=== PATIENT | female | born 2000 | race Caucasian/White ===

== ENCOUNTER 2021-03-15 11:08 | Emergency (ER) | payer BC, OTHER ==
[2021-03-15] MEDS ORDERED: Ondansetron 4 MG/2 ML SDV IVPUSH ONE (11:29)
[2021-03-15] MEDS ORDERED: Sodium Chloride 0.9% 1,000 ML IV SCH (11:30)
--- NOTE | 2021-03-15 11:42 | EDM.PDOC ---
ED HPI GENERAL MEDICAL PROBLEM - General Chief Complaint: Gastrointestinal Problem Stated Complaint: [id number] VOMITING AND DIAHERRA FOR OVER 24 HOURS Time Seen by Provider: 03/15/21 11:37 Source of Information: Reports: Patient, RN, RN Notes Reviewed History Limitations: Reports: No Limitations - History of Present Illness INITIAL COMMENTS - FREE TEXT/NARRATIVE: Natalie is a 20 y/o female who presents to the ED via personal vehicle with complaints of nausea, vomiting, and diarrhea for >24 hours. The patient reports she woke up yesterday with loose stools at approximately 0600, she started vomiting shortly thereafter. She has noticed her symptoms have maintained since this time and has grown concerned the stools and emesis have not slowed down. She has attempted small, frequent sips of clear liquids but has not been able to keep her fluids down. She has taken one dose of Dramamine at the instruction of her nursing care attendant, which offered her no alleviation of symptoms. She denies fever, shaking chills, vision changes, dyspepsia, palpitations, hematemesis, dysuria, hematuria, melena, or hematochezia. She does attest to general malaise and moderate abdominal cramping. The patient states she is currently on her menses. She denies tobacco or recreational drug use; she drinks alcohol socially and reports a last drink about five days ago on 03/09/21. She denies a history of COVID infection and has not received any COVID vaccination. - Related Data Allergies Allergy/AdvReac Type Severity Reaction Status Date / Time clindamycin Allergy Chest Verified 03/15/21 11:37 Presssure doxycycline Allergy Chest Verified 03/15/21 11:37 Presssure Home Meds: Home Meds . [No Known Home Meds] 03/15/21 [History] Past Medical History - Past Surgical History Other HEENT Surgeries/Procedures: jaw reconstruction Social & Family History - Family History Family Medical History: No Pertinent Family History - Tobacco Use Tobacco Use Status *Q: Never Tobacco User Second Hand Smoke Exposure: No - Caffeine Use Caffeine Use: Reports: Soda - Recreational Drug Use Recreational Drug Use: No ED ROS GENERAL - Review of Systems Review Of Systems: Comprehensive ROS is negative, except as noted in HPI. ED EXAM, GI/ABD - Physical Exam Exam: See Below Exam Limited By: No Limitations General Appearance: Alert, Thin, Other (Ill-appearing). No: Active Emesis Eyes: Bilateral: Normal Appearance, EOMI Throat/Mouth: Normal Inspection, Normal Lips (Dry and cracked), Normal Teeth, Normal Voice, No Airway Compromise. No: Normal Oropharynx (Dry oral mucous membranes) Head: Atraumatic, Normocephalic Neck: Normal Inspection, Supple, Non-Tender, Full Range of Motion Respiratory/Chest: No Respiratory Distress, Lungs Clear, Normal Breath Sounds, No Accessory Muscle Use, Chest Non-Tender Cardiovascular: Normal Peripheral Pulses, Regular Rate, Rhythm, No Edema, No Gallop, No JVD, No Murmur, No Rub, Tachycardia GI/Abdominal Exam: Soft, Non-Tender, No Distention, No Mass, Pelvis Stable, Abnormal Bowel Sounds (Hypoactive bowel sounds) (Female) Exam: Deferred Rectal (Female) Exam: Deferred Back Exam: Normal Inspection, Full Range of Motion Extremities: Normal Inspection, Normal Range of Motion, Non-Tender, Normal Capillary Refill, No Pedal Edema Neurological: Alert, Oriented, CN II-XII Intact, Normal Cognition, Normal Gait, Normal Reflexes, No Motor/Sensory Deficits Psychiatric: Normal Affect, Normal Mood Skin Exam: Dry, Intact, No Rash, Cool, Pallor. No: Ecchymosis, Erythema, Mottled, Petechiae Course - Vital Signs Last Recorded V/S: Last Vital Signs Temp 97.3 F 03/15/21 11:25 Pulse 140 H 03/15/21 11:25 Resp 18 03/15/21 11:25 BP 133/89 03/15/21 11:25 Pulse Ox 100 03/15/21 11:25 - Orders/Labs/Meds Orders: Active Orders 24 hr Category Date Time Status Sodium Chloride 0.9% [Normal Saline] 1,000 ml Med 03/15/21 11:30 Active IV ASDIRECTED Medication Orders Sodium Chloride (Normal Saline) 1,000 mls @ 999 mls/hr IV ASDIRECTED YEHUDA Last Admin: 03/15/21 11:29 Dose: 999 mls/hr Documented by: SCARLET Labs: Laboratory Tests 03/15/21 03/15/21 03/15/21 Range/Units 11:23 11:23 11:28 WBC 7.8 (5.0-10.0) 10^3/uL RBC 4.66 (4.2-5.4) 10^6/uL Hgb 13.7 (12.0-16.0) g/dL Hct 40.5 (37.0-47.0) % MCV 86.9 (80-100) fL MCH 29.4 (27.0-34.0) pg MCHC 33.8 (33.0-35.0) g/dL Plt Count 281 (150-450) 10^3/uL Neut % (Auto) 76.6 H (42.2-75.2) % Lymph % (Auto) 12.5 L (20.5-50.1) % [place] % (Auto) 10.5 H (2-8) % Eos % (Auto) 0.3 L (1.0-3.0) % Baso % (Auto) 0.1 (0.0-1.0) % Sodium 140 (136-145) mmol/L Potassium 3.8 (3.5-5.1) mmol/L Chloride 101 (98-107) mmol/L Carbon Dioxide 25 (21-32) mmol/L Anion Gap 17.8 H (7-13) mEq/L BUN 22 H (7-18) mg/dL Creatinine 1.00 (0.55-1.02) mg/dL Est Cr Clr Drug Dosing 87.27 mL/min Estimated GFR (MDRD) > 60 BUN/Creatinine Ratio 22.0 (No establ ref range) Glucose 108 H (70-99) mg/dL Calcium 9.2 (8.5-10.1) mg/dL Total Bilirubin 0.8 (0.2-1.0) mg/dL AST 16 (15-37) U/L ALT 29 (14-59) U/L Alkaline Phosphatase 69 (46-116) U/L Total Protein 8.3 H (6.4-8.2) g/dL Albumin 4.0 (3.4-5.0) g/dL Globulin 4.3 Albumin/Globulin Ratio 0.9 Urine Color (YELLOW) Urine Appearance (CLEAR) Urine pH (5.0-9.0) Ur Specific [place] (1.005-1.030) Urine Protein (NEGATIVE) Urine Glucose (UA) (NEGATIVE) Urine Ketones (NEGATIVE) Urine Occult Blood (NEGATIVE) Urine Nitrite (NEGATIVE) Urine Bilirubin (NEGATIVE) Urine Urobilinogen (0.2-1.0) mg/dL Ur Leukocyte Esterase (NEGATIVE) U Hyaline Cast (Auto) Urine RBC /HPF Urine WBC (0-5/HPF) /HPF Ur Epithelial Cells (NOT SEEN) /HPF Urine Bacteria (0-FEW/HPF) /HPF Urine Mucus (NOT SEEN) /LPF Urine HCG, Qual SARS-CoV-2 RNA (JACOB) Negative (NEGATIVE) 03/15/21 03/15/21 Range/Units 11:50 11:50 WBC (5.0-10.0) 10^3/uL RBC (4.2-5.4) 10^6/uL Hgb (12.0-16.0) g/dL Hct (37.0-47.0) % MCV (80-100) fL MCH (27.0-34.0) pg MCHC (33.0-35.0) g/dL Plt Count (150-450) 10^3/uL Neut % (Auto) (42.2-75.2) % Lymph % (Auto) (20.5-50.1) % [place] % (Auto) (2-8) % Eos % (Auto) (1.0-3.0) % Baso % (Auto) (0.0-1.0) % Sodium (136-145) mmol/L Potassium (3.5-5.1) mmol/L Chloride (98-107) mmol/L Carbon Dioxide (21-32) mmol/L Anion Gap (7-13) mEq/L BUN (7-18) mg/dL Creatinine (0.55-1.02) mg/dL Est Cr Clr Drug Dosing mL/min Estimated GFR (MDRD) BUN/Creatinine Ratio (No establ ref range) Glucose (70-99) mg/dL Calcium (8.5-10.1) mg/dL Total Bilirubin (0.2-1.0) mg/dL AST (15-37) U/L ALT (14-59) U/L Alkaline Phosphatase (46-116) U/L Total Protein (6.4-8.2) g/dL Albumin (3.4-5.0) g/dL Globulin Albumin/Globulin Ratio Urine Color Dark yellow (YELLOW) Urine Appearance Slightly cloudy (CLEAR) Urine pH 6.0 (5.0-9.0) Ur Specific [place] 1.025 (1.005-1.030) Urine Protein 30 H (NEGATIVE) Urine Glucose (UA) Negative (NEGATIVE) Urine Ketones 40 H (NEGATIVE) Urine Occult Blood Trace-intact H (NEGATIVE) Urine Nitrite Negative (NEGATIVE) Urine Bilirubin Small H (NEGATIVE) Urine Urobilinogen 0.2 (0.2-1.0) mg/dL Ur Leukocyte Esterase Negative (NEGATIVE) U Hyaline Cast (Auto) Rare Urine RBC 0-5 /HPF Urine WBC 0-5 (0-5/HPF) /HPF Ur Epithelial Cells Few (NOT SEEN) /HPF Urine Bacteria Few (0-FEW/HPF) /HPF Urine Mucus Many H (NOT SEEN) /LPF Urine HCG, Qual Negative SARS-CoV-2 RNA (JACOB) (NEGATIVE) Meds: Medications Generic Name Dose Route Start Last Admin Trade Name Freq PRN Reason Stop Dose Admin Sodium Chloride 1,000 mls @ 999 mls/hr 03/15/21 11:30 03/15/21 11:29 Normal Saline IV 999 mls/hr ASDIRECTED YEHUDA Administration Discontinued Medications Generic Name Dose Route Start Last Admin Trade Name Freq PRN Reason Stop Dose Admin Ondansetron HCl 4 mg 03/15/21 11:29 03/15/21 11:36 Ondansetron 4 Mg/2 Ml Sdv IVPUSH 03/15/21 11:30 4 mg ONETIME ONE Administration - Re-Assessments/Exams Free Text/Narrative Re-Assessment/Exam: 03/15/21 NS 1L bolus and Zofran 4mg IVP administered while labs pending. CBC unremarkable for acute processes; no evidence of infection or anemia. CMP fairly benign; electrolytes, kidney function, and liver function appropriate. Anion gap likely elevated d/t vomiting and mild dehydration. Hcg negative. COVID negative. Discussed findings of examination and lab work with patient. No indication for imaging given history and exam as etiology is likely gastroenteritis that is currently affecting the community. Discussed supportive cares, as well as red flag signs and symptoms which would warrant reevaluation. Patient verbalized understanding and agreement with the plan of care. Departure - Departure Time of Disposition: 12:22 Disposition: Home, Self-Care 01 Condition: Good Clinical Impression: Gastroenteritis - Discharge Information *PRESCRIPTION DRUG MONITORING PROGRAM REVIEWED*: Not Applicable *COPY OF PRESCRIPTION DRUG MONITORING REPORT IN PATIENT KRYS: Not Applicable Instructions: Dehydration, Adult, [id number], Viral Gastroenteritis, Adult, [id number] Forms: ED Department Discharge Additional Instructions: Rx: Zofran 1.) Drink small sips of water frequently to keep hydrated. 2.) You may attempt to eat as you become hungry, but start with a bland diet such as applesauce, jello, toast. Avoid spicy, high-fat, and greasy foods. 3.) Follow up with your primary care provider, or return to the emergency department, with vomiting that persists for an additional 24 hours with medi cations, fever, or shaking chills. Sepsis Event Note (ED) - Evaluation Sepsis Screening Result: No Definite Risk - Focused Exam Vital Signs: Vital Signs Temp Pulse Resp BP Pulse Ox 03/15/21 11:25 97.3 F 140 H 18 133/89 100 - My Orders Last 24 Hours: My Active Orders 03/15/21 11:30 Sodium Chloride 0.9% [Normal Saline] 1,000 ml IV ASDIRECTED - Assessment/Plan Last 24 Hours: My Active Orders 03/15/21 11:30 Sodium Chloride 0.9% [Normal Saline] 1,000 ml IV ASDIRECTED
[2021-03-15 11:48] LABS: ANION GAP 17.8 mEq/L (7-13); CHLORIDE,CL 101 mmol/L (98-107); SODIUM,NA 140 mmol/L (136-145)
== END 2021-03-15 12:38 | disposition home or self-care (01) ==
LOC: DL.ED 11:08
DX: K52.9 Noninfective gastroenteritis and colitis, unspecified (principal); Z20.822 Contact with and (suspected) exposure to COVID-19; Z88.1 Allergy status to other antibiotic agents
CPT/HCPCS: 36415; 80053; 81001; 81025; 85025; 87635; 96361; 96374; 99283; 99284; J2405; J7030; U0002

== ENCOUNTER 2025-04-02 14:58 | Emergency (ER) | payer BC ==
[2025-04-02] MEDS: Iopamidol 612 MG/ML 100 ML Bottle IVPUSH ONE (14:55)
[2025-04-02 14:56] LABS: BASOPHILS PERCENT AUTO 0.2 % (0.0-1.0); HEMATOCRIT 41.4 % (37.0-47.0); HEMOGLOBIN 14.3 g/dL (12.0-16.0); LYMPHOCYTES PERCENT AUTO 28.9 % (20.5-50.1); MEAN CORPUSCULAR HEMOGLOBIN 30.3 pg (27.0-34.0); MEAN CORPUSCULAR HGB CONC 34.5 g/dL (33.0-35.0); MEAN CORPUSCULAR VOLUME 87.7 fL (80-100); MONOCYTES PERCENT AUTO 7.3 % (2-8); NEUTROPHILS PERCENT AUTO 62.6 % (42.2-75.2); PLATELET COUNT,PLT 275 10^3/uL (150-450); RED BLOOD CELL COUNT 4.72 10^6/uL (4.2-5.4); WHITE BLOOD CELL COUNT,WBC 9.8 10^3/uL (5.0-10.0)
[2025-04-02 14:57] LABS: ALANINE AMINOTRANSFERASE,ALT 73 U/L (14-59); ALBUMIN 4.3 g/dL (3.4-5.0); ALKALINE PHOSPHATASE 73 U/L (46-116); ANION GAP 11.8 mEq/L (7-13); ASPARTATE AMNIOTRANSFERASE,AST 23 U/L (15-37); BILIRUBIN TOTAL 0.8 mg/dL (0.2-1.0); BLOOD UREA NITROGEN,BUN 12 mg/dL (7-18); CALCIUM 10.1 mg/dL (8.5-10.1); CARBON DIOXIDE,CO2 28 mmol/L (21-32); CHLORIDE,CL 100 mmol/L (98-107); CREATININE 0.86 mg/dL (0.55-1.02); ESTIMATED GFR 97 mL/min (>=60); GLUCOSE RANDOM 90 mg/dL (70-99); HCG QUALITATIVE,SERUM NEGATIVE (NEGATIVE); POTASSIUM,K 3.8 mmol/L (3.5-5.1); PROTEIN TOTAL,TP 8.7 g/dL (6.4-8.2); SODIUM,NA 136 mmol/L (136-145)
[~2025-04-02 14:58] MED LIST: Sodium Chloride 0.9% 10 ML Syringe FLUSH PRN
[2025-04-02] MEDS: Ondansetron 4 MG/2 ML SDV IVPUSH ONE ×2 (14:58→15:56)
[2025-04-02 15:11] LABS: APPEARANCE,URINE CLEAR (CLEAR); BILIRUBIN,URINE NEGATIVE (NEGATIVE); COLOR,URINE YELLOW (YELLOW); GLUCOSE,URINE NEGATIVE (NEGATIVE); KETONES,URINE NEGATIVE (NEGATIVE); LEUKOCYTE ESTERASE,URINE NEGATIVE (NEGATIVE); NITRITE,URINE NEGATIVE (NEGATIVE); OCCULT BLOOD,URINE NEGATIVE (NEGATIVE); PROTEIN,URINE NEGATIVE (NEGATIVE); UROBILINOGEN,URINE 0.2 mg/dL (0.2-1.0)
[2025-04-02] MEDS: fentaNYL 100 MCG/2 ML SDV IVPUSH ONE ×2 (15:17→15:33)
[2025-04-02] MEDS: Sodium Chloride 0.9% 1,000 ML IV ONE (15:56)
[2025-04-02] MEDS: Piperacillin/Tazobactam 4.5 GM in Sodium Chloride 0.9% 100 ML IV ONE (15:56)
[2025-04-02] MEDS: HYDROmorphone 0.5 MG/0.5 ML Syringe IVPUSH ONE (15:57)
== END 2025-04-02 16:26 | disposition home or self-care (01) ==
LOC: DL.ED 14:58
DX: K35.30 Acute appendicitis with localized peritonitis, without perforation or gangrene (principal); Z88.1 Allergy status to other antibiotic agents; Z88.8 Allergy status to other drugs, medicaments and biological substances
CPT/HCPCS: 36415; 74177; 80053; 81003; 83605; 84703; 85025; 86140; 87040; 96365; 96375; 96376; 99285; J2405; J2543; J3010; J7030; Q9967